=== PATIENT | male | born 1960 | race Caucasian/White ===

== ENCOUNTER 2021-07-27 11:00 | Outpatient (RCR) | payer MEDICAID, SELFPAY ==
--- NOTE | 2021-06-08 13:04 | HP.OTEVAL_ITS ---
Patient's Visit Information GEMINI BRANTLEY is a 61 year old M, referred to Occupational Therapy by Dr. Harshad Martinez MD, with a diagnosis of OA of 1st carpometacarpal joint of left hand. Date of Evaluation: 06/08/21 Occupational Therapist: Abril Becker, OTR/L, CHT - Subjective This 61 year old male was seen for OT eval with dx of osteoarthritis of 1st carpometacarpal joint left hand- pt states he had pain on and off for a few years- pt deciede to have sx on 05/25/21. pt arrive 2 weeks s/p from a left CMC arthroplasty with tenodesis and left wrist 1st dorsal compartment release. pt is right handed. pt works for an [employer] - ADLs Dressing: Pants, Socks, Shoes Fasteners: Buttons Eating: Cut food Kitchen: Chop with knife, Peel fruits & vegetables, Open jars, Open bottle caps - Pain left thumb 1 Pain Intensity Range: 5 - ROM Wrist: right 65/60 left 55/25 CMC: right 0 left 0 MP: right 60 left 40 IP: right 65 left 40 Radial Abduction: right 45 left 30 Opposition: Kapandji scale right 10 left 3 ROM Comments: pt demo with good ROM for being 2 weeks s/p - Strength International Sales Manager: right 55# left NT Lateral Pinch: right 16# left NT Tripod Pinch: right 16# left NT Strength Comments: will test left at later date - Sensation Sensation Comments: denies - Hand/Wrist Evaluation Total Score of Pain & Functional Sections: 69 - Goals Goal:100% adherence to protocol: Yes Comment: Dr. Martinez cmc arthroplasty protocol Goal:Daily scar massage when approriate: Yes Goal:ROM equal to unaffected hand: Yes Goal:International Sales Manager/Pinch strength at least 75% of unaffected hand: Yes Goal:No pain with affected hand use: Yes Goal:Full use of affected hand in daily activities including: Yes - Rehabilitation General Assessment: Pt is 2 weeks s/p from a CMC arthroplasty with tenodesis and 1st dorsal compartment release. Pt demo good ROM and minimal pain but due to healing structures pt limited with use of left hand with daily tasks. Pt would benefit from skilled OT services 1-2x week for 6 weeks- following protocol to return pt to a ind. level of function with ADLs and IADLs. Today therapist ed pt on dx and sx procedure- precautions and adj. were made for pts orthosis. Pt demo understanding of POC and agree to POC. Rehabilitation Potential: Good - Anticipated Interventions A/AAROM/PROM, Strengthening, Scar Care, Triggerpoint Release, Modalities, Orthoses, Joint Protection/Energy Conservation, Ergonomic Education, Fine Motor Coord/Earl, Education re assistive Equipment, Education re Diagnosis, Home Program - Visit Plan Frequency: 1-2x /Week Duration: 6 Weeks TEXT: Thank you for the opportunity to evaluate your patient. For Medicare and Medicare HMO plans, please review the plan of care and approve it. It will need to be FAXED BACK to us at [phone] for Medicare purposes. Please let me know if there are questions or concerns regarding this plan of care. Physician Signature: Date:
--- NOTE | 2021-07-27 11:47 | HP.OTDCSUM_ITS ---
It has been my pleasure to treat GEMINI BRANTLEY under orders from Dr. Harshad Martinez MD, for the diagnosis of OA of 1st carpometacarpal joint of left hand for a total of 7 visit(s). Please see the following information for a summary of their discharge status. 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 L Lat pinch 4#. L Tri Pinch 5#. IP 54*. MP 45*. CMC 13*. Pt reports pain when grasping milk jug and tying shoes. Patient Goals: Decrease Pain, Use Hand/Wrist/Arm Normally Again Goal:100% adherence to protocol: Yes Goal:Daily scar massage when approriate: Yes Goal:ROM equal to unaffected hand: Yes Goal:Plastic Parts Fabricator/Pinch strength at least 75% of unaffected hand: Yes Goal:No pain with affected hand use: Yes Goal:Full use of affected hand in daily activities including: Yes Plan: DC Discharge Comments: pt has done well following his CMC arthroplasty - pt has met OT goals and is DC with HEP and use of orthosis as needed with heavy tasks. pt agrees to D/C. If there are questions or concerns regarding this patient's occupational therapy, please fell free to call me at [phone]. Thank you for the referral of this patient. Sincerely, Abril Becker, OTR/L, CHT
== END 2021-07-27 13:12 | disposition home or self-care (01) ==
LOC: OT 11:00
PROVIDERS: Referring Provider Orthopaedic Surgery; Visit Provider Orthopaedic Surgery
DX: M18.52 Other unilateral secondary osteoarthritis of first carpometacarpal joint, left hand (principal)
CPT/HCPCS: 97110; 97140; 97166; 97530